=== PATIENT | male | born 1950 | race Caucasian/White ===

== ENCOUNTER 2016-08-15 09:42 | Day surgery (SDC) | payer MEDICARE, BC ==
[2016-08-15] MEDS ORDERED: Lactated Ringers 1,000 ML IV SCH (10:00)
[2016-08-15] MEDS ORDERED: Sodium Chloride 0.9% 10 ML Syringe FLUSH PRN (10:00)
[2016-08-15] MEDS ORDERED: Propofol 200 MG/20 ML SDV ONE ×2 (11:05→11:10)
--- NOTE | 2016-08-15 11:27 | PCM.PN ---
- General Info Date of Service: 08/15/16 - Review of Systems Systems Review Comment:: 66-year-old male referred for colonoscopy. He has a history of colon polyps. He is medically stable to proceed today with no significant change in his health status since his recent history and physical which is reviewed. I again discussed the proposed colonoscopy with the patient. Risks such as but not limited to bleeding and GI injury or reviewed. He appears to understand and agrees to proceed. - Patient Data Vitals - most recent: Last Vital Signs Temp 97.9 F 08/15/16 10:14 Pulse 61 08/15/16 10:14 Resp 20 08/15/16 10:14 BP 123/86 08/15/16 10:14 Pulse Ox 98 08/15/16 10:14 Weight - most recent: 90.718 kg Med Orders - Current: Current Medications Lactated Ringer's (Ringers, Lactated) 1,000 mls @ 125 mls/hr IV ASDIRECTED GREGORY Last Admin: 08/15/16 10:55 Dose: 125 mls/hr Sodium Chloride (Saline Flush) 10 ml FLUSH ASDIRECTED PRN PRN Reason: Keep Vein Open Discontinued Medications Propofol (Diprivan 20 Ml) Confirm Administered Dose 400 mg .ROUTE .STK-MED ONE Stop: 08/15/16 11:06 - Problem List Review Problem List Initiated/Reviewed/Updated: Yes - My Orders Last 24 Hours: My Active Orders 08/15/16 10:00 Patient Status [ADT] Routine Peripheral IV Care [RC] . DIRECTED Verify Patient Consent Obtain [RC] ASDIRECTED Lactated Ringers [Ringers, Lactated] 1,000 ml IV ASDIRECTED Sodium Chloride 0.9% [Saline Flush] 10 ml FLUSH ASDIRECTED PRN Peripheral IV Insertion Adult [OM.PC] Routine - Assessment Assessment:: History of colon polyps - Plan Plan:: Colonoscopy
--- NOTE | 2016-08-15 11:48 | PCM.OPNOTE ---
- General Post-Op/Procedure Note Date of Surgery/Procedure: 08/15/16 Operative Procedure(s): Colonoscopy Findings: Mild sigmoid diverticulosis Mild internal hemorrhoids Pre Op Diagnosis: History of colon polyps Post-Op Diagnosis: Diverticulosis. Hemorrhoids Anesthesia Technique: MAC Primary Surgeon: Jameson Zaragoza Pathology: none Output, Urine Amount: 0 EBL in mLs: 0 Complications: None Condition: Good
--- NOTE | 2016-08-15 14:16 | OR ---
Date of Procedure: 08/15/2016 PREOPERATIVE DIAGNOSIS: History of colon polyps. POSTOPERATIVE DIAGNOSES: 1. Diverticulosis. 2. Internal hemorrhoids. OPERATION PERFORMED: Colonoscopy. INDICATIONS FOR SURGERY: This 66-year-old male has a known history of colon polyps and comes for surveillance colonoscopy. FINDINGS: No polyps were seen during today's exam. The patient has small internal hemorrhoids noted on retroflexed examination. There is also a mild degree of sigmoid diverticulosis, which does not appear acutely inflamed. The remainder of the colon appears normal. DESCRIPTION OF PROCEDURE: The patient was taken to the operating room. He was given intravenous sedation and with him in the left lateral decubitus position, digital rectal exam was performed showing no rectal masses. The Olympus colonoscope was inserted into the rectum, retroflexed examination of the rectal canal was performed. The scope was then carefully advanced under direct visualization through the entire length of the colon until the cecum was reached. Cecal acquisition was confirmed by noting the normal internal cecal anatomy including the appendiceal orifice and ileocecal valve. The light was also noted to transilluminate the abdominal wall in the right lower quadrant. The ileocecal valve was cannulated, and the terminal ileum was also examined and appeared normal. The scope was then slowly withdrawn sequentially re-examining the colonic segments until the entire colon and rectum had been fully examined. The scope was then removed, and the patient was taken from the operating room in satisfactory condition. ESTIMATED BLOOD LOSS: Zero. COMPLICATIONS: None. PROGNOSIS: Good. COMMENT: We will recommend that the patient have a repeat colonoscopy in five years. MOHINI Zaragoza MD /[id number]
[2016-08-15 15:50] VITALS: BP 120/85
== END 2016-08-15 12:54 | disposition home or self-care (01) ==
LOC: LL.SDS 09:42
PROVIDERS: ATTEND Surgery
DX: Z12.11 Encounter for screening for malignant neoplasm of colon (principal); K57.30 Diverticulosis of large intestine without perforation or abscess without bleeding; K64.8 Other hemorrhoids; Z88.8 Allergy status to other drugs, medicaments and biological substances; Z79.82 Long term (current) use of aspirin; Z79.899 Other long term (current) drug therapy
CPT/HCPCS: G0105; J7120; 00810-QZ; J2704

== ENCOUNTER 2023-02-26 15:36 | Emergency (ER) | payer MEDICARE, BC ==
[2023-02-26 15:52] VITALS: BP 117/83; PULSE 70
[2023-02-26] MEDS: Diphtheria,Pertussis(Acell),Tetanus Vaccine 0.5 ML Syringe IM ONE (18:00)
[2023-02-26] MEDS: Lidocaine 2% 5 ML SDV INJECT ONE (18:04)
[2023-02-26] MEDS: Bacitracin Oint 1 GM U/D Packet TOP ONE (18:43)
== END 2023-02-26 18:50 | disposition home or self-care (01) ==
LOC: LL.ED 15:36
DX: S61.012A Laceration without foreign body of left thumb without damage to nail, initial encounter (principal); Z23 Encounter for immunization; I10 Essential (primary) hypertension; K21.9 Gastro-esophageal reflux disease without esophagitis; E66.9 Obesity, unspecified; F17.210 Nicotine dependence, cigarettes, uncomplicated; Z68.32 Body mass index [BMI] 32.0-32.9, adult; Z79.82 Long term (current) use of aspirin; Z88.8 Allergy status to other drugs, medicaments and biological substances; Z79.899 Other long term (current) drug therapy; W31.1XXA Contact with metalworking machines, initial encounter; Y92.009 Unspecified place in unspecified non-institutional (private) residence as the place of occurrence of the external cause
CPT/HCPCS: 12001; 90471; 90715; 99283-25; J3490

== ENCOUNTER 2023-05-02 14:23 | Emergency (ER) | payer MEDICARE, BC ==
[2023-05-02] MEDS ORDERED: Sodium Chloride 0.9% 10 ML Syringe FLUSH PRN (14:42)
[2023-05-02] MEDS ORDERED: Aspirin 81 MG Tab.Chew PO ONE (14:42)
[2023-05-02 14:51] LABS: BASOPHILS ABSOLUTE AUTO 0.03 K/uL (0.00-0.20); BASOPHILS PERCENT AUTO 0.1 % (0.0-2.0); EOSINOPHILS ABSOLUTE AUTO 0.08 K/uL (0.00-0.50); EOSINOPHILS PERCENT AUTO 0.2 % (0.0-5.0); HEMATOCRIT 46.6 % (39.0-49.0); HEMOGLOBIN 15.6 g/dL (13.1-16.8); LYMPHOCYTES ABSOLUTE AUTO 43.48 K/uL (0.50-3.50); MEAN CORPUSCULAR HEMOGLOBIN 28.6 pg (28.2-33.3); MEAN CORPUSCULAR HGB CONC 33.5 g/dL (31.7-36.0); MEAN CORPUSCULAR VOLUME 85.3 fL (84.0-98.0); MONOCYTES ABSOLUTE AUTO 0.76 K/uL (0.00-1.00); MONOCYTES PERCENT AUTO 1.6 % (2.0-14.0); NEUTROPHILS ABSOLUTE AUTO 2.89 K/uL (1.40-7.00); NEUTROPHILS PERCENT AUTO 6.1 % (45.0-80.0); PLATELET COUNT,PLT 114 K/uL (150-350); RED BLOOD CELL COUNT 5.46 M/uL (4.33-5.41); RED CELL DISTRIBUTION WIDTH 14.9 % (11.2-14.1)
[2023-05-02 14:58] LABS: WHITE BLOOD CELL COUNT,WBC 47.2 K/uL (4.0-10.2)
[2023-05-02 15:08] LABS: ALANINE AMINOTRANSFERASE,ALT 29 U/L (12-78); ALBUMIN 3.5 g/dL (3.4-5.0); ALKALINE PHOSPHATASE 99 IU/L (46-116); ANION GAP 4.9 meq/L (7-15); ASPARTATE AMNIOTRANSFERASE,AST 18 U/L (15-37); BILIRUBIN TOTAL 1.5 mg/dL (0.2-1.0); BLOOD UREA NITROGEN,BUN 15 mg/dL (7-18); CALCIUM 8.4 mg/dL (8.5-10.1); CARBON DIOXIDE,CO2 30.1 mmol/L (21.0-32.0); CHLORIDE,CL 105 mmol/L (98-107); CREATININE 1.64 mg/dL (0.51-1.17); GLUCOSE RANDOM 90 mg/dL (70-99); MAGNESIUM 1.7 mg/dL (1.8-2.4); POTASSIUM,K 3.9 mmol/L (3.5-5.1); PROTEIN TOTAL,TP 6.4 g/dL (6.4-8.2); SODIUM,NA 140 mmol/L (136-145)
[2023-05-02 15:10] LABS: ESTIMATED GFR 44 mL/min (>=60)
[2023-05-02 16:28] VITALS: BP 125/88; PULSE 56
== END 2023-05-02 16:20 | disposition home or self-care (01) ==
LOC: LL.ED 14:23
DX: M25.512 Pain in left shoulder (principal); R07.89 Other chest pain; I10 Essential (primary) hypertension; M19.90 Unspecified osteoarthritis, unspecified site; E66.9 Obesity, unspecified; Z79.82 Long term (current) use of aspirin; Z79.899 Other long term (current) drug therapy; Z88.8 Allergy status to other drugs, medicaments and biological substances
CPT/HCPCS: 36415; 71046; 80053; 83605; 83735; 84484; 85025; 85379; 93005; 99285; A9270-GY

== ENCOUNTER 2023-10-17 01:46 | Emergency (ER) | payer MEDICARE, BC ==
[2023-10-17 01:49] VITALS: BP 118/72
[2023-10-17] MEDS: Acetaminophen 650 MG Tab.ER PO PRN (02:45)
[2023-10-17 03:06] VITALS: PULSE 70
== END 2023-10-17 03:00 | disposition home or self-care (01) ==
LOC: LL.ED 01:46
DX: M25.562 Pain in left knee (principal); I10 Essential (primary) hypertension; K21.9 Gastro-esophageal reflux disease without esophagitis; Z88.8 Allergy status to other drugs, medicaments and biological substances; Z79.82 Long term (current) use of aspirin; Z79.899 Other long term (current) drug therapy; X50.0XXA Overexertion from strenuous movement or load, initial encounter
CPT/HCPCS: 73502; 73560; 99283; A9270